=== PATIENT | female | born 1970 | race Caucasian/White ===

== ENCOUNTER 2016-05-31 09:21 | Observation (INO) | payer SELFPAY ==
[~2016-05-31] VITALS: Ht 167.6 cm; Wt 97.9 kg
[2016-05-31] MEDS ORDERED: SODIUM CHLORIDE 0.9% 1,000 ML IV ONE ×3 (09:35→11:40)
[2016-05-31] MEDS ORDERED: ALPR-475 PO (09:58)
[2016-05-31] MEDS ORDERED: HYDROmorphone 1 MG/ML, 1ML IVPush PRN (10:00)
[2016-05-31] MEDS ORDERED: SODIUM CHLORIDE FLUSH 10ML SYR IVF ONE (10:00)
[2016-05-31] MEDS ORDERED: SODIUM CHLORIDE 0.9% 1,000ML IVBOLUS ONE (10:00)
[2016-05-31] MEDS ORDERED: ONDANSETRON 2MG/ML, 2ML IVPush ONE (10:00)
[2016-05-31 10:11] LABS: HEMOGLOBIN 14.6 g/dL (11.7-16.4)
[2016-05-31 10:17] LABS: ASPARTATE AMINO TRANSFERASE 11 U/L (15-37); BLOOD UREA NITROGEN 7 mg/dL (7-18)
[2016-05-31 10:18] LABS: PATH.CAST-FLAG NOT PRESENT; SPERM-FLAG NOT PRESENT; SRC-FLAG NOT PRESENT; XTAL-FLAG NOT PRESENT; YLC-FLAG NOT PRESENT
[2016-05-31] MEDS ORDERED: HYDROmorphone 1 MG/ML, 1ML ONE (10:40)
[2016-05-31] MEDS ORDERED: ONDANSETRON 2MG/ML, 2ML ONE ×2 (10:40→12:55)
[2016-05-31] MEDS ORDERED: OMNIPAQUE 350 MG/ML, 100ML BOTTLE ONE (11:19)
[2016-05-31] MEDS ORDERED: FENTANYL PF 250 MCG/5ML ONE (11:58)
[2016-05-31] MEDS ORDERED: MIDAZOLAM 1 MG/ML, 2ML ONE (11:58)
[2016-05-31] MEDS ORDERED: MORPHINE SULFATE 4 MG/ML, 1ML IVPush PRN (12:00)
[2016-05-31] MEDS ORDERED: SODIUM CHLORIDE FLUSH 10ML SYR IVF PRN (12:00)
[2016-05-31] MEDS ORDERED: ONDANSETRON 2MG/ML, 2ML IVPush PRN ×3 (12:00→14:00)
[2016-05-31] MEDS ORDERED: CEFOTETAN PMX 1GM/50ML 50 ML IVPB ONE (12:00)
[2016-05-31] MEDS ORDERED: BUPIVACAINE/PF-EPI 0.5% 1:200K ONE (12:14)
[2016-05-31] MEDS ORDERED: OXYcodone 5 MG/5 ML ORAL.SOL UDC PO PRN (12:30)
[2016-05-31] MEDS ORDERED: METOCLOPRAMIDE 5 MG/ML, 2ML IV PRN (12:30)
[2016-05-31] MEDS ORDERED: MEPERIDINE/PF 25MG/0.5ML IVPush PRN (12:30)
[2016-05-31] MEDS ORDERED: HYDROmorphone 1 MG/ML, 1ML IV PRN (12:30)
[2016-05-31] MEDS ORDERED: PROMETHAZINE 25 MG/ML, 1ML IV PRN (12:30)
[2016-05-31] MEDS ORDERED: PROPOFOL 10 MG/ML, 20ML ONE (12:55)
[2016-05-31] MEDS ORDERED: DEXAMETHASONE 4 MG/ML, 1ML ONE (12:55)
[2016-05-31] MEDS ORDERED: GLYCOPYRROLATE 0.2MG/1ML ONE (12:55)
[2016-05-31] MEDS ORDERED: SUCCINYLCHOLINE 20 MG/ML, 10ML ONE (12:55)
[2016-05-31] MEDS ORDERED: NEOSTIGMINE 1 MG/ML, 10ML ONE (12:55)
[2016-05-31] MEDS ORDERED: ROCURONIUM 10 MG/ML ONE (12:55)
[2016-05-31] MEDS ORDERED: CEFAZOLIN 1,000 MG ONE (12:55)
[2016-05-31] MEDS ORDERED: morphine SULFATE 10 MG/ML, 1ML IVPush PRN (14:00)
[2016-05-31] MEDS ORDERED: ONDANSETRON ODT 4 MG PO PRN (14:00)
[2016-05-31] MEDS ORDERED: ACETAMINOPHEN 325 MG TABLET PO PRN (14:00)
[2016-05-31] MEDS ORDERED: ENALAPRILAT 1.25 MG/ML, 2ML IVPush PRN (14:00)
[2016-05-31] MEDS ORDERED: LABETALOL 5MG/ML, 20ML IVPush PRN (14:00)
[2016-05-31] MEDS ORDERED: OXYcodone 5 MG/5 ML ORAL.SOL UDC ONE (14:06)
[2016-05-31] MEDS ORDERED: FENTANYL PF 100 MCG/2ML ONE (14:06)
[2016-05-31] MEDS: FENTANYL PF 100 MCG/2ML IV PRN ×2 (14:09→14:30)
[2016-05-31] MEDS: D5%-0.45NACL+KCL 20MEQ 1,000 ML IV SCH (17:48)
[2016-05-31] MEDS: CEFOTETAN PMX 1GM/50ML 50 ML IVPB SCH (17:48)
[2016-05-31] MEDS: OXYcodone/APAP 7.5/325MG TABLET PO PRN ×2 (17:56→22:04)
[2016-05-31 19:30] VITALS: BP 130/83
[2016-06-01] VITALS: BP 108/77
[2016-06-01 04:00] VITALS: BP 136/82
[2016-06-01] MEDS: CEFOTETAN PMX 1GM/50ML 50 ML IVPB SCH ×2 (05:31→17:02)
[2016-06-01] MEDS: D5%-0.45NACL+KCL 20MEQ 1,000 ML IV SCH ×3 (06:00→18:25)
[2016-06-01] MEDS: OXYcodone/APAP 7.5/325MG TABLET PO PRN ×3 (06:22→15:32)
[2016-06-01 06:50] VITALS: BP 131/87
[2016-06-01 07:19] LABS: HEMOGLOBIN 12.9 g/dL (11.7-16.4)
[2016-06-01 13:12] VITALS: BP 114/78
[2016-06-01 19:05] VITALS: BP 134/88
[2016-06-02] MEDS: D5%-0.45NACL+KCL 20MEQ 1,000 ML IV SCH ×2 (02:00→08:40)
[2016-06-02 03:00] VITALS: BP 134/89
[2016-06-02] MEDS: CEFOTETAN PMX 1GM/50ML 50 ML IVPB SCH (05:28)
[2016-06-02 05:29] LABS: HEMOGLOBIN 13.3 g/dL (11.7-16.4)
[2016-06-02 07:40] VITALS: BP 118/82
[2016-06-02] MEDS ORDERED: HYDR-882 PO (09:37)
[2016-06-02] MEDS ORDERED: ALPR0.5T6 PO (09:38)
[2016-06-02] MEDS ORDERED: phenergan PO (09:40)
[2016-06-02 10:17] VITALS: BP 131/86
== END 2016-06-02 10:28 | disposition home or self-care (01) ==
LOC: ED 11:32 → EDIP 11:40 → INTOOBSV 11:40 → 4NOR 15:58
PROVIDERS: ADMIT Surgery; ATTEND Surgery
DX: K35.80 Unspecified acute appendicitis (principal); E66.3 Overweight
CPT/HCPCS: 36415; 44970; 74177; 76700; 80053; 81001; 82140; 83605; 83690; 84703; 85025; 87086; 88304; 96365; 96375; 99285; C1729; G0378; J0330; J0690; J1100; J1170; J2250; J2405; J2704; J2710; J3010; J3480; J7030; Q0162; Q9967; S0074; J3490